=== PATIENT | male | born 1955 | race Caucasian/White ===

== ENCOUNTER → 2020-06-21 | Outpatient (CLI) | payer MEDICARE ==
--- NOTE | 2020-06-22 09:51 | ECHOF ---
Referral Reason:R00.1 Bradycardia MEASUREMENTS -------- HEIGHT: 180.3 cm WEIGHT: 84.4 kg BP: IVSd: 1.3 cm (0.6 - 1.1) LVIDd: 2.9 cm (3.9 - 5.3) LVPWd: 1.4 cm (0.6 - 1.1) IVSs: 1.8 cm LVIDs: 1.7 cm LVPWs: 2.0 cm LAESV Index (A-L): 25.31 ml/m Ao Diam: 3.5 cm (2.0 - 3.7) AV Cusp: 2.7 cm (1.5 - 2.6) LA Diam: 3.0 cm (2.7 - 3.8) MV EXCURSION: 16.659 mm (> 18.000) MV EF SLOPE: 106 mm/s (70 - 150) EPSS: 1.0 cm MV E Mendel: 0.80 m/s MV DecT: 250 ms MV A Mendel: 1.04 m/s MV E/A Ratio: 0.77 RAP: 5.00 mmHg RVSP: 25.48 mmHg FINDINGS -------- This was a technically good study. The left ventricular size is normal. There is mild concentric left ventricular hypertrophy. Overa ll left ventricular systolic function is normal with, an EF between 55 - 60 %. Normal LAP Grade 1 D iastolic Dysfunction. The right ventricle is normal in size. The left atrial size is normal. Normal LA size by volume 22+/-6 ml/m2. The right atrial size is normal. Interatrial and interventricular septum intact. Aortic valve is trileaflet and is mildly thickened. The mitral valve is normal. The mitral valve leaflets are mildly thickened. Mild mitral annular c alcification present. There is trace mitral regurgitation. The tricuspid valve appears structurally normal. Mild tricuspid regurgitation present. Right vent ricular systolic pressure is normal at < 35 mmHg. There is no pulmonic regurgitation present. The aortic root size is normal. Normal inferior vena cava with normal inspiratory collapse consistent with estimated right atrial pre ssure of 5 mmHg. There is no pericardial effusion. CONCLUSIONS -------- 1. The left ventricular size is normal. 2. There is mild concentric left ventricular hypertrophy. 3. Overall left ventricular systolic function is normal with, an EF between 55 - 60 %. 4. Normal LAP Grade 1 Diastolic Dysfunction. 5. Aortic valve is trileaflet and is mildly thickened. 6. The mitral valve leaflets are mildly thickened. 7. Mild mitral annular calcification present. 8. There is trace mitral regurgitation. 9. Mild tricuspid regurgitation present. 10. There is no pericardial effusion. UTILITY WORKER FORGE: Angelina Acosta RDCS
== END | disposition home or self-care (01) ==
LOC: RADECHMAIN 12:26
PROVIDERS: ATTEND Family Medicine
DX: R00.1 Bradycardia, unspecified (principal)
CPT/HCPCS: 93306

== ENCOUNTER 2020-11-14 23:47 | Inpatient (IN) | payer MEDICARE, OTHER ==
[2020-11-15] MEDS ORDERED: SODIUM CHLORIDE 0.9% 1,000 ML IV STA ×2 (00:10)
--- NOTE | 2020-11-15 00:12 | ED ---
Neuro HPI - General Chief Complaint: Neuro Symptoms/Deficit Stated Complaint: Right arm tingling, disoriented Time Seen by Provider: 11/14/20 23:57 Source: patient, family Mode of arrival: wheelchair Limitations: no limitations - Related Data Allergies/Adverse Reactions: Allergies Allergy/AdvReac Type Severity Reaction Status Date / Time No Known Allergies Allergy Verified 11/14/20 23:54 Review of Systems ROS Statement: Those systems with pertinent positive or pertinent negative responses have been documented in the HPI. ROS Other: All systems not noted in ROS Statement are negative. General Exam Limitations: no limitations Stroke MDM - Lab Data Result diagrams: 11/15/20 00:20 11/15/20 00:20 Lab Results 11/15/20 11/15/20 11/15/20 Range/Units 00:18 00:20 00:20 WBC 7.5 (3.8-10.6) k/uL RBC 5.12 (4.30-5.90) m/uL Hgb 16.1 (13.0-17.5) gm/dL Hct 47.7 (39.0-53.0) % MCV 93.0 (80.0-100.0) fL MCH 31.4 (25.0-35.0) pg MCHC 33.7 (31.0-37.0) g/dL RDW 13.0 (11.5-15.5) % Plt Count 189 (150-450) k/uL MPV 7.0 Neutrophils % 55 % Lymphocytes % 29 % Monocytes % 8 % Eosinophils % 6 % Basophils % 1 % Neutrophils # 4.2 (1.3-7.7) k/uL Lymphocytes # 2.2 (1.0-4.8) k/uL Monocytes # 0.6 (0-1.0) k/uL Eosinophils # 0.4 (0-0.7) k/uL Basophils # 0.1 (0-0.2) k/uL PT 10.5 (9.0-12.0) sec INR 1.0 (<1.2) APTT 22.7 (22.0-30.0) sec Sodium (137-145) mmol/L Potassium (3.5-5.1) mmol/L Chloride (98-107) mmol/L Carbon Dioxide (22-30) mmol/L Anion Gap mmol/L BUN (9-20) mg/dL Creatinine (0.66-1.25) mg/dL Est GFR (CKD-EPI)AfAm (>60 ml/min/1.73 sqM) Est GFR (CKD-EPI)NonAf (>60 ml/min/1.73 sqM) Glucose (74-99) mg/dL POC Glucose (mg/dL) 80 (75-99) mg/dL POC Glu Weight Caller ID Saul Paredes Calcium (8.4-10.2) mg/dL Total Bilirubin (0.2-1.3) mg/dL AST (17-59) U/L ALT (4-49) U/L Alkaline Phosphatase (38-126) U/L Creatine Kinase (55-170) U/L CK-MB (CK-2) (0.0-2.4) ng/mL Troponin I (0.000-0.034) ng/mL Total Protein (6.3-8.2) g/dL Albumin (3.5-5.0) g/dL 11/15/20 11/15/20 Range/Units 00:20 00:20 WBC (3.8-10.6) k/uL RBC (4.30-5.90) m/uL Hgb (13.0-17.5) gm/dL Hct (39.0-53.0) % MCV (80.0-100.0) fL MCH (25.0-35.0) pg MCHC (31.0-37.0) g/dL RDW (11.5-15.5) % Plt Count (150-450) k/uL MPV Neutrophils % % Lymphocytes % % Monocytes % % Eosinophils % % Basophils % % Neutrophils # (1.3-7.7) k/uL Lymphocytes # (1.0-4.8) k/uL Monocytes # (0-1.0) k/uL Eosinophils # (0-0.7) k/uL Basophils # (0-0.2) k/uL PT (9.0-12.0) sec INR (<1.2) APTT (22.0-30.0) sec Sodium 138 (137-145) mmol/L Potassium 4.0 (3.5-5.1) mmol/L Chloride 106 (98-107) mmol/L Carbon Dioxide 24 (22-30) mmol/L Anion Gap 8 mmol/L BUN 20 (9-20) mg/dL Creatinine 0.94 (0.66-1.25) mg/dL Est GFR (CKD-EPI)AfAm >90 (>60 ml/min/1.73 sqM) Est GFR (CKD-EPI)NonAf 85 (>60 ml/min/1.73 sqM) Glucose 82 (74-99) mg/dL POC Glucose (mg/dL) (75-99) mg/dL POC Glu Weight Caller ID Calcium 9.4 (8.4-10.2) mg/dL Total Bilirubin 0.5 (0.2-1.3) mg/dL AST 38 (17-59) U/L ALT 55 H (4-49) U/L Alkaline Phosphatase 100 (38-126) U/L Creatine Kinase 106 (55-170) U/L CK-MB (CK-2) 2.1 (0.0-2.4) ng/mL Troponin I <0.012 (0.000-0.034) ng/mL Total Protein 6.9 (6.3-8.2) g/dL Albumin 4.1 (3.5-5.0) g/dL - EKG Data -: EKG Interpreted by Me (EKG shows sinus Bradycardia rate of 53 OK 148 QRS 92 QTC 422) Past Medical History Past Medical History: No Reported History History of Any Multi-Drug Resistant Organisms: None Reported Past Surgical History: Appendectomy Past Psychological History: No Psychological Hx Reported Smoking Status: Never smoker Past Alcohol Use History: Occasional Past Drug Use History: None Reported Course Vital Signs 11/14/20 23:49 Temperature 98.1 F Pulse Rate 61 Respiratory 18 Rate Blood Pressure 195/101 O2 Sat by Pulse 99 Oximetry Disposition Clinical Impression: Cerebrovascular accident (CVA), Transient cerebral ischemia Disposition: ADMITTED IP TO THIS HOSP Condition: Fair Is patient prescribed a controlled substance at d/c from ED?: No Referrals: Prince Shea MD [Primary Care Provider] - 1-2 days
[2020-11-15 00:29] LABS: Basophils # (A) 0.1 k/uL (0-0.2); Basophils % (A) 1 %; Eosinophils # (A) 0.4 k/uL (0-0.7); Eosinophils % (A) 6 %; HCT 47.7 % (39.0-53.0); HGB 16.1 gm/dL (13.0-17.5); Lymphocytes # (A) 2.2 k/uL (1.0-4.8); Lymphocytes % (A) 29 %; MCH 31.4 pg (25.0-35.0); MCHC 33.7 g/dL (31.0-37.0); Monocytes # (A) 0.6 k/uL (0-1.0); Monocytes % (A) 8 %; Neutrophils # (A) 4.2 k/uL (1.3-7.7); Neutrophils % (A) 55 %; Platelet Count 189 k/uL (150-450); RBC 5.12 m/uL (4.30-5.90); WBC 7.5 k/uL (3.8-10.6)
[2020-11-15 00:31] LABS: Glucose,Whole Blood 80 mg/dL (75-99)
[2020-11-15 00:38] LABS: Partial Thromboplastin Time 22.7 sec (22.0-30.0); Prothrombin Time 10.5 sec (9.0-12.0)
[2020-11-15 00:43] LABS: ALT 55 U/L (4-49); AST 38 U/L (17-59); African American GFR (CKD) >90 (>60 ml/min/1.73 sqM); Albumin 4.1 g/dL (3.5-5.0); Alkaline Phosphatase 100 U/L (38-126); Anion Gap 8 mmol/L; Blood Urea Nitrogen 20 mg/dL (9-20); Calcium 9.4 mg/dL (8.4-10.2); Carbon Dioxide 24 mmol/L (22-30); Chloride 106 mmol/L (98-107); Creatine Kinase 106 U/L (55-170); Glucose 82 mg/dL (74-99); Non-African American GFR(CKD) 85 (>60 ml/min/1.73 sqM); Sodium 138 mmol/L (137-145); Total Bilirubin 0.5 mg/dL (0.2-1.3); Total Protein 6.9 g/dL (6.3-8.2)
[2020-11-15 00:55] LABS: Creatine Kinase MB 2.1 ng/mL (0.0-2.4); Troponin I <0.012 ng/mL (0.000-0.034)
--- NOTE | 2020-11-15 01:16 | CT ---
EXAMINATION TYPE: CT brain wo con for TPA DATE OF EXAM: 11/15/2020 COMPARISON: None HISTORY: R/O Stroke, Rt sided numbness CT DLP: 1060 mGycm Automated exposure control for dose reduction was used. Images obtained of the brain without contrast. Ventricles and sulci appear within normal limits. There is 1 cm area of white matter hypodensity in t he lateral anterior aspect left internal capsule.. The calvarium is intact. Skull base is intact. The re is no evidence of intracranial hemorrhage. IMPRESSION: Lacunar infarct anterior left internal capsule appears old. No acute intracranial abnormality.
--- NOTE | 2020-11-15 01:37 | CT ---
EXAMINATION TYPE: CT angio head neck DATE OF EXAM: 11/15/2020 COMPARISON: None HISTORY: R/O Stroke, Rt sided numbness CT DLP: 588.5 mGycm Automated exposure control for dose reduction was used. CONTRAST: Performed with IV Contrast, patient injected with 65 mL of Isovue 370. Images were obtained from the aortic arch to the vertex of the brain with IV contrast. There are 3-D post processed images. There is normal branching pattern of the great vessels on the aortic arch. There is bilateral arteria l flow in the subclavian arteries. There is arterial flow in both vertebral arteries. There is arterial flow in the common internal and external carotid arteries bilaterally. There is wide patency of the carotid artery bifurcations. Ther e is no evidence of carotid or vertebral artery aneurysm or dissection. There is arterial flow in the anterior middle and posterior cerebral arteries. There is arterial flow in the vertebrobasilar artery system. There is normal contrast opacification of the venous sinuses. There is no mass effect. There is no sign of intracranial aneurysm or neovascularity. There is no amaris dence of hemodynamic stenosis. The right anterior cerebral artery appears to fill entirely through th e anterior communicating artery. IMPRESSION: Negative CT angiogram of the neck. Negative CT angiogram of the brain.
[2020-11-15] MEDS ORDERED: ASPIRIN 325 MG TAB PO STA (01:50)
[2020-11-15] MEDS: SODIUM CHLORIDE 0.9% 1,000 ML IV SCH (02:05)
[2020-11-15] MEDS: CLOPIDOGREL 75 MG TAB PO SCH (09:09)
--- NOTE | 2020-11-15 10:32 | ECHOF ---
Referral Reason:Thrombus MEASUREMENTS -------- HEIGHT: 182.9 cm WEIGHT: 91.2 kg BP: 175/87 RVIDd: 2.6 cm (< 3.3) IVSd: 1.2 cm (0.6 - 1.1) LVIDd: 3.9 cm (3.9 - 5.3) LVPWd: 1.1 cm (0.6 - 1.1) IVSs: 1.5 cm LVIDs: 2.9 cm LVPWs: 1.4 cm LAESV Index (A-L): 18.86 ml/m Ao Diam: 3.6 cm (2.0 - 3.7) AV Cusp: 1.7 cm (1.5 - 2.6) MV EXCURSION: 15.618 mm (> 18.000) MV EF SLOPE: 93 mm/s (70 - 150) EPSS: 0.9 cm MV E Mendel: 0.56 m/s MV DecT: 303 ms MV A Mendel: 0.94 m/s MV E/A Ratio: 0.60 RAP: 5.00 mmHg RVSP: 23.73 mmHg FINDINGS -------- Sinus rhythm. This was a technically good study. The left ventricular size is normal. There is borderline concentric left ventricular hypertrophy. Overall left ventricular systolic function is normal with, an EF between 55 - 60 %. The right ventricle is normal in size. Normal LA size by volume 22+/-6 ml/m2. The right atrial size is normal. There is mild aortic valve sclerosis. There is no evidence of aortic regurgitation. Mild mitral annular calcification present. Mild mitral regurgitation is present. Mild tricuspid regurgitation present. There is no evidence of pulmonary hypertension. Trace/mild (physiologic) pulmonic regurgitation. The aortic root size is normal. Echo free space represents a pericardial fat pad. CONCLUSIONS -------- 1. The left ventricular size is normal. 2. There is borderline concentric left ventricular hypertrophy. 3. Overall left ventricular systolic function is normal with, an EF between 55 - 60 %. 4. The right ventricle is normal in size. 5. Normal LA size by volume 22+/-6 ml/m2. 6. The right atrial size is normal. 7. There is mild aortic valve sclerosis. 8. Mild mitral annular calcification present. 9. Mild mitral regurgitation is present. 10. Mild tricuspid regurgitation present. 11. Trace/mild (physiologic) pulmonic regurgitation. 12. The aortic root size is normal. 13. Echo free space represents a pericardial fat pad. FOUNDRY EQUIPMENT MECHANIC: Radha Wright RDCS
--- NOTE | 2020-11-15 13:07 | P.CNNES ---
History of Present Illness Consult date: 11/15/20 Requesting physician: Iraj Pace Reason for Consult: right sided numbness History of Present Illness: This is a 65-year-old gentleman with recent diagnosis of HTN (controlled with diet) and hypercholestremia that presented to the emergency department on 11/15/2020 for right-sided numbness. He stated that his numbness started around 2:00 to 2:30 on the 11/13/2020 and that was on the entire right upper extremity as well as the side of the V1 and V2 V3 distribution. He feels like the numbness has been improving but has not resolved. He also felt like he is having right-sided weakness and had difficulty walking yesterday but improved today. Patient denies off any neck pain or any current headaches. He denies of any history of stroke or TIAs in the past that. He stated that he is on aspirin 81 mg daily. In the past he stood be on the Lipitor 10 mg per was having joint pain so he stopped. He is not on any the cholesterol medication and because of the side effects. Regarding his hypertonicity was recently diagnosed with hypertension by his primary care and he said that that that was being monitored but was not on any medication. He said that he drinks about 9-10 and severe off 12 ounces once a week and he's been doing it for years. Workup in the hospital consisted of: CT of the head is reported as lacunar infarct in the anterior left internal capsule appears old. No acute intracranial abnormality. Personally reviewed the CT of the head and I agree there is no intraparenchymal hemorrhage acute or subacute ischemia. I felt there is lacunar infarct on bilateral internal capsule and at the borders of the thalamus bilaterally. CT angiography of the head and neck was reported as negative for the brain as well as the neck. 2-D echo was reported as borderline concentric left ventricular hypertrophy. Ejection fraction between 55 and 60%. Normal left atrial size. EKG is reported as sinus bradycardia. Otherwise normal EKG. Initial POC glucose is 80. Review of Systems Review of system: The 12 point system was reviewed and apparent positive and negative per HPI. Past Medical History Past Medical History: No Reported History History of Any Multi-Drug Resistant Organisms: None Reported Past Surgical History: Appendectomy Past Anesthesia/Blood Transfusion Reactions: No Reported Reaction Past Psychological History: No Psychological Hx Reported Smoking Status: Never smoker Past Alcohol Use History: Occasional Past Drug Use History: None Reported - Past Family History Father Family Medical History: CVA/TIA Additional Family Medical History / Comment(s): Pt states of stroke Mother Family Medical History: CVA/TIA Additional Family Medical History / Comment(s): Pt states of stroke Sister(s) Family Medical History: CVA/TIA Additional Family Medical History / Comment(s): Pt states of stroke Medications and Allergies Home Medications Medication Instructions Recorded Confirmed Type Aspirin EC [Ecotrin Low Dose] 81 mg PO DAILY 11/15/20 11/15/20 History Cholecalciferol [Vitamin D3 (25 25 mcg PO DAILY 11/15/20 11/15/20 History Mcg = 1000 Iu)] Allergies Allergy/AdvReac Type Severity Reaction Status Date / Time No Known Allergies Allergy Verified 11/15/20 07:03 Physical Examination - Vital Signs Vital Signs: Vital Signs Temp Pulse Pulse Resp BP BP Pulse Ox 11/15/20 12:10 98.2 F 59 L 18 160/92 97 11/15/20 09:05 98.1 F 58 L 16 149/80 96 11/15/20 04:00 97.9 F 50 L 18 175/87 98 11/15/20 02:45 50 L 18 153/88 97 11/15/20 02:00 98.3 F 50 L 18 152/87 11/15/20 01:30 54 L 18 158/89 11/15/20 01:00 98.2 F 50 L 18 162/92 11/15/20 00:45 56 L 18 147/89 11/15/20 00:30 55 L 18 151/87 11/15/20 00:15 55 L 18 166/88 11/15/20 00:01 98.1 F 62 18 167/101 98 11/14/20 23:49 98.1 F 61 18 195/101 99 Intake and Output 11/14/20 11/15/20 11/15/20 22:59 06:59 14:59 Intake Total 240 Balance 240 Intake: Oral 240 Other: # Voids 0 Weight 91.3 kg GENERAL: The patient is lying in bed and is not in acute distress. CHEST: The heart rate is regular rate rhythm. No murmurs to auscultation. No carotid bruit bilaterally----. LUNG: Clear to auscultation bilaterally no wheezing noted throughout. Not labored breathing. ABDOMEN/GI: Bowel sounds present in all 4 quadrants. No tenderness to palpation throughout. NEUROLOGICAL: Higher mental function: The patient is awake, alert, oriented to self, place and time. Patient is following commands. No aphasia and no neglect. Cranial nerves: The pupils are round, equal and reactive to light and ac commodation. Visual krishna are full to confrontation throughout. Extraocular movement is intact no nystagmus is noted. Facial sensation is normal to touch throughout. The facial strength is normal throughout. Hearing is mildly to moderate decreased to hand rubs. Tongue is midline and moved [id number] without any difficulty. No dysarthria is noted. Shoulder shrug is normal bilaterally. Motor: Gait is normal. The strength is 5 over 5 throughout. Normal tone and bulk. Cerebellum: Normal finger to nose bilaterally. Sensation: Sensation is normal to touch throughout. Reflexes (right/left): 2+ Plantars are downgoing bilaterally. NIH Stroke Scale Score: Level of consciousness 0 LOC questions 0 LOC commands 0 Best gaze 0 Visual krishna 0 Facial palsy 0 Left motor arm 0 Right motor arm 0 Left motor leg 0 Right motor leg 0 Limb ataxia 0 Sensory 0 Best language 0 Dysarthria 0 Extinction and inattention Total NIHSS score: 0 Results [place] virus PCR was not detected - Laboratory Findings CBC and BMP: 11/15/20 00:20 11/15/20 00:20 Abnormal Lab Findings: Abnormal Labs 11/15/20 00:20 ALT 55 H Assessment and Plan Assessment: This is a 55-year-old gentleman that came to the emergency department on 11/14/2020 for right-sided numbness and weakness that started on 11/13/20. Subjective Right sided numbness (face and arm) with weakness (weakness resolved): Is likely due to transient ischemic attack versus acute ischemic stroke Lacunar stroke seems bilateral on CT head: Small vessel disease (due to risk factors:hypercholestremia and hypertension) Recent diagnosis of Hypertension History of hypercholesterolemia Alcohol use Plan: Currently the patient is on aspirin 325 and Plavix 75 mg daily. I decreased the aspirin to 81 mg a. The patient to continue dual antiplatelets for 21 days then stop aspirin and to continue indefinitely on Plavix 75 mg daily. Since the patient had side effects to Lipitor and it was a low dose Lipitor 10 mg I will not start the patient on statin. Consider simvastatin 10 mg daily as an outpatient since we don't have the medication. Carotid duplex is ordered by the primary team. I ordered MRI of the brain Lipid panel is pending PT, OT and ADVANCED PRACTICE NURSE PSYCHOTHERAPIST are consulted. Ordered every 4 hours neuro checks Placed the patient on continous cardiac monitoring I ordered vitamin B12, folate and vitamin B6 levels. I started the patient on thiamine 100 mg daily. The patient was counseled on alcohol cessation. Thank you for the consultation. Kemar Gutierrez M.D. Neuro-hospitalist Time with Patient: Greater than 30
--- NOTE | 2020-11-15 15:35 | US ---
EXAMINATION TYPE: US carotid duplex BILAT DATE OF EXAM: 11/15/2020 COMPARISON: NONE CLINICAL HISTORY: 65-year-old male TIA/CVA. Right sided weakness, no history of stroke. TECHNIQUE: Carotid duplex ultrasound examination. Indirect Doppler criteria was utilized. FINDINGS: EXAM MEASUREMENTS: RIGHT: Peak Systolic Velocity (PSV) cm/sec ----- Right CCA: 79.9 ----- Right ICA: 89.2 ----- Right ECA: 89.4 ICA/CCA ratio: 1.1 RIGHT: End Diastole cm/sec ----- Right CCA: 12.7 ----- Right ICA: 11.6 ----- Right ECA: 12.4 LEFT: Peak Systolic Velocity (PSV) cm/sec ----- Left CCA: 73.5 ----- Left ICA: 108.0 ----- Left ECA: 142.6 ICA/CCA ratio: 1.5 LEFT: End Diastole cm/sec ----- Left CCA: 16.0 ----- Left ICA: 28.9 ----- Left ECA: 13.4 VERTEBRALS (direction of flow): Right Vertebral: Antegrade Left Vertebral: Antegrade Rhythm: Normal Bulb Weeder notes: Heterogeneous plaque left bulb/ICA with no significant stenosis seen. IMPRESSION: No hemodynamically significant internal carotid artery stenosis on either side. Criteria for Assigning % of Stenosis / Diameter reduction (Estimation based on the indirect measurements of the internal carotid artery velocities (ICA PSV). 1. Normal (no stenosis)=ICA PSV < 125 cm/s: ratio < 2.0: ICA EDV<40 cm/s. 2. Less than 50% stenosis=ICA PSV < 125 cm/s: ratio < 2.0: ICA EDV<40 cm/s. 3. 50 to 69% stenosis=ICA PSV of 125 to 230 cm/s: ration 2.0 ? 4.0: ICA EDV 40-100 cm/s. 4. Greater than 70% stenosis to near occlusion= ICA PSV > 230 cm/s: ratio > 4.0: ICA EDV > 100 cm/s. 5. Near occlusion= ICA PSV velocities may be low or undetectable: variable ratio and ICA EDV. 6. Total occlusion=unable to detect flow.
[2020-11-15] MEDS: THIAMINE 100 MG TAB PO SCH (17:40)
[2020-11-15] MEDS ORDERED: ATORVASTATIN 40 MG TAB PO SCH (21:00)
--- NOTE | 2020-11-16 00:37 | HP ---
HISTORY AND PHYSICAL A 65-year-old white male with right arm tingling, right facial tingling, disorientation starting 24 hours after drinking 9-10 beers. He has never had this before. He does drink binge drink 7-10 beers at any different time like 1 day a week for many years. He has never had a stroke. Borderline hypertension as an outpatient. No medicines. Allergies are negative. His right arm numbness is resolved. He has been given Plavix and aspirin. His right facial numbness is still there. Labs reviewed. MRI and MRA were reviewed. Neurology consult reviewed. Cardiovascular S1, S2. Lungs clear. GI soft. Musculoskeletal strength 5/5 for extremities. Cranial nerves are intact on the facial. There is no facial asymmetry. ASSESSMENT: Transient ischemic attack versus cerebrovascular accident, suspected transient ischemic attack. We are going to do an MRI. CTAs are normal. We will get cardiology to rule out doing a TAMMIE for patent foraminal ovale. Make sure there is none of those. Continue with Plavix and aspirin and maybe blood pressure control on the patient. Alcohol counseling for binge drinking is informed over 1-2 drinks a day. Over that, he will have higher blood pressure and he is going to have withdrawal from all of this for future alcohol drinking. Please see further orders. MMODL / IJN: [id number] /
[2020-11-16] MEDS ORDERED: ASPIRIN 325 MG TAB PO SCH (01:51)
[2020-11-16 08:08] LABS: Cholesterol 255 mg/dL (<200); HDL Cholesterol 70 mg/dL (40-60); LDL Cholesterol,Calculated 153 mg/dL (0-99); Triglycerides 162 mg/dL (<150)
[2020-11-16] MEDS: CLOPIDOGREL 75 MG TAB PO SCH (09:05)
[2020-11-16] MEDS: THIAMINE 100 MG TAB PO SCH (09:05)
[2020-11-16] MEDS: ASPIRIN 81 MG PO SCH (09:05)
--- NOTE | 2020-11-16 09:51 | P.CRDCN ---
History of Present Illness History of present illness: HISTORY OF PRESENTING ILLNESS This is a pleasant 65-year-old male with no significant past medical history. 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 We have been asked to see in consultation for embolic CVA. He has been diagnosed with a TIA versus a stroke per neurology. MRI is currently pending. Echocardiogram obtained reveals preserved LV systolic function with ejection fraction 55-60%. He initially presented to the hospital with numbness to the right side of his face that lasted for approximately 30 minutes. The numbness is currently resolved. He denies symptoms of chest pain, shortness of breath, dizziness or palpitations. DIAGNOSTICS EKG reveals sinus bradycardia heart rate of [address] or T wave abnormalities noted. Telemetry tracings indicate persistent sinus mechanism with no acute arrhythmias noted. Bilateral carotid Doppler reveals no hemodynamically significant stenosis bilaterally. Laboratory reviewed, CBC unremarkable, sodium 138, potassium 4.0, creatinine 0.94, troponin negative 1, TSH 3.37, LDL 151 and HDL 72. Current cardiac medications include aspirin 81 mg daily. REVIEW OF SYSTEMS At the time of my exam: CONSTITUTIONAL: Denies fever or chills. CARDIOVASCULAR: Denies chest pain, shortness of breath, orthopnea, PND or pa lpitations. RESPIRATORY: Denies cough. GASTROINTESTINAL: Denies abdominal pain, diarrhea, constipation, nausea or vomiting. MUSCULOSKELETAL: Denies myalgias. NEUROLOGIC: Denies numbness, tingling, headacbe or weakness. ENDOCRINE: Denies fatigue, weight change, polydipsia or polyurina. GENITOURINARY: Denies burning, hematuria or urgency with micturation. HEMATOLOGIC: Denies history of anemia or bleeding. PHYSICAL EXAMINATION Blood pressure 122/69 heart rate 61 afebrile and maintaining oxygen saturation on room air. CONSTITUTIONAL: No apparent distress. HEENT: Head is normocephalic. Pupils are equal, round. Sclerae anicteric. Mucous membranes of the mouth are moist. No JVD. No carotid bruit. CHEST EXAMINATION: Lungs are clear to auscultation. No chest wall tenderness is noted on palpation or with deep breathing. HEART EXAMINATION: Regular rate and rhythm. S1, S2 heard. No murmurs, gallops or rub. ABDOMEN: Soft, nontender. Positive bowel sounds. EXTREMITIES: 2+ peripheral pulses, no lower extremity edema and no calf tenderness. NEUROLOGIC EXAMINATION: Patient is awake, alert and oriented x3. ASSESSMENT TIA vs CVA Dyslipidemia Hypertension Daily alcohol intake PLAN He has eaten this morning, so we will plan for TAMMIE tomorrow morning with Dr. Camp. NPO after midnight tonight. Thank you kindly for this consultation. Nurse Practitioner note has been reviewed, I agree with a documented findings and plan of care. Patient was seen and examined. Past Medical History Past Medical History: No Reported History History of Any Multi-Drug Resistant Organisms: None Reported Past Surgical History: Appendectomy Past Anesthesia/Blood Transfusion Reactions: No Reported Reaction Past Psychological History: No Psychological Hx Reported Smoking Status: Never smoker Past Alcohol Use History: Occasional Past Drug Use History: None Reported - Past Family History Father Family Medical History: CVA/TIA Additional Family Medical History / Comment(s): Pt states of stroke Mother Family Medical History: CVA/TIA Additional Family Medical History / Comment(s): Pt states of stroke Sister(s) Family Medical History: CVA/TIA Additional Family Medical History / Comment(s): Pt states of stroke Medications and Allergies Home Medications Medication Instructions Recorded Confirmed Type Aspirin EC [Ecotrin Low Dose] 81 mg PO DAILY 11/15/20 11/15/20 History Cholecalciferol [Vitamin D3 (25 25 mcg PO DAILY 11/15/20 11/15/20 History Mcg = 1000 Iu)] Allergies Allergy/AdvReac Type Severity Reaction Status Date / Time No Known Allergies Allergy Verified 11/15/20 07:03 Physical Exam Vitals: Vital Signs Temp Pulse Resp BP Pulse Ox 11/16/20 09:00 98.2 F 61 16 122/69 98 11/16/20 04:00 58 L 18 144/77 97 11/16/20 02:00 55 L 18 11/15/20 23:51 55 L 18 142/81 97 11/15/20 20:00 63 18 11/15/20 19:52 97.8 F 63 18 150/79 11/15/20 14:00 18 11/15/20 12:10 98.2 F 59 L 18 160/92 97 Intake and Output 11/15/20 11/16/20 11/16/20 22:59 06:59 14:59 Intake Total 118 Balance 118 Intake: Oral 118 Other: # Voids 1 1 Weight 89.9 kg Results 11/15/20 00:20 11/15/20 00:20 Lipids 11/16/20 11/16/20 Range/Units 07:37 07:37 Triglycerides 162 H 164 H (<150) mg/dL Cholesterol 255 H 256 H (<200) mg/dL HDL Cholesterol 70 H 72 H (40-60) mg/dL Current Medications Generic Name Dose Route Start Last Admin Trade Name Ryanq PRN Reason Stop Dose Admin Aspirin 81 mg 11/16/20 09:00 11/16/20 09:05 Aspirin 81 Mg PO 81 mg DAILY PARRISH Administration Clopidogrel Bisulfate 75 mg 11/15/20 09:00 11/16/20 09:05 Clopidogrel 75 Mg Tab PO 75 mg DAILY PARRISH Administration Sodium Chloride 1,000 mls @ 100 mls/hr 11/15/20 02:00 11/15/20 02:05 Saline 0.9% IV 100 mls/hr .Q10H PARRISH Administration Thiamine HCl 100 mg 11/15/20 13:15 11/16/20 09:05 Thiamine 100 Mg Tab PO 100 mg DAILY PARRISH Administration Intake and Output 11/15/20 11/16/20 11/16/20 22:59 06:59 14:59 Intake Total 118 Balance 118 Intake: Oral 118 Other: # Voids 1 1 Weight 89.9 kg 11/15/20 00:20 11/15/20 00:20
--- NOTE | 2020-11-16 11:26 | MR ---
"EXAMINATION TYPE: MR brain wo con DATE OF EXAM: 11/16/2020 COMPARISON: CT brain 11/15/2020 HISTORY: Right sided weakness CONTRAST: Performed utilizing 0 mL intravenous Gadavist gadolinium contrast. TECHNIQUE: Multiplanar, multiecho imaging on a 3.0 Jasmin magnet is performed through the brain. Stud y is performed within 24 hours of arrival to the hospital. The craniovertebral junction is normal. The pituitary is normal. Diffusion-weighted imaging is performed. There is hyperintensity within the posterior left basal rebecca glion extending to the periventricular occipital horn region compatible with an acute lacunar infarct . An old lacunar infarct is in the anterior left basal ganglion adjacent to the anterior horn left late ral ventricle. There is some scattered periventricular and subcortical and deep white matter hyperint ensities on T2 and inversion recovery weighted sequences which are nonspecific and can be related to microvascular ischemic change. Largest of these left farrell radiata measuring 0.7 cm. Ventricles and sulci are appropriate for the patient age. IMPRESSIONS: 1. Acute left posterior basal ganglion lacunar infarct. 2. Periventricular and deep white matter changes likely chronic microvascular ischemic change. A [place] level critical message alert has been initiated for Prince Shea MD via the [employer] 36 0 | Critical Results System on 11/16/2020 11:22 AM. This message alert has been sent to Prince Shea MD via the preferences provided by the clinician for the receipt of Radiology Critical Findings. Mt ssage ID [id number]."
[2020-11-16 12:33] LABS: Hemoglobin A1C 5.3 % (4.0-6.0)
--- NOTE | 2020-11-16 13:09 | P.PN ---
Subjective Progress Note Date: 11/16/20 Patient was seen today at bedside and he stated that the he feels neurologically the same and denies any new weakness, numbness, visual disturbance. He continues to have some numbness over the right side but feels it is improving. MRI the brain was done today and it's reported as acute left posterior basal ganglia lacunar infarct. Periventricular and deep white matter changes likely chronic microvascular ischemic changes. Objective - Vital Signs Vital signs: Vital Signs Temp 98.3 F 11/16/20 11:41 Pulse 56 L 11/16/20 11:41 Resp 16 11/16/20 11:41 BP 152/83 11/16/20 11:41 Pulse Ox 98 11/16/20 11:41 Intake & Output 11/15/20 11/16/20 11/16/20 18:59 06:59 18:59 Intake Total 460 118 236 Balance 460 118 236 Weight 89.9 kg Intake: Oral 460 118 236 Other: # Voids 2 1 - Exam GENERAL: The patient is lying in bed and is not in acute distress. NEUROLOGICAL: Higher mental function: The patient is awake, alert, oriented to self, place and time. Patient is following commands. No aphasia and no neglect. Cranial nerves: The pupils are round, equal and reactive to light and accommodation. Visual krishna are full to confrontation throughout. Extraocular movement is intact no nystagmus is noted. Facial sensation is normal to touch throughout. The facial strength is normal throughout. Hearing is mildly to moderate decreased to hand rubs. Tongue is midline and moved [id number] without any difficulty. No dysarthria is noted. Shoulder shrug is normal bilaterally. Motor: Gait is normal. The strength is 5 over 5 throughout. Normal tone and bulk. Cerebellum: Normal finger to nose bilaterally. Sensation: Sensation is normal to touch throughout. Reflexes (right/left): 2+ Plantars are downgoing bilaterally. - Labs CBC & Chem 7: 11/15/20 00:20 11/15/20 00:20 Labs: Abnormal Lab Results - Last 24 Hours (Table) 11/16/20 11/16/20 Range/Units 07:37 07:37 Triglycerides 162 H 164 H (<150) mg/dL Cholesterol 255 H 256 H (<200) mg/dL LDL Cholesterol, Calc 153 H 151 H (0-99) mg/dL HDL Cholesterol 70 H 72 H (40-60) mg/dL Assessment and Plan Assessment: This is a 55-year-old gentleman that came to the emergency department on 11/14/2020 for right-sided numbness and weakness that started on 11/13/20. Acute ischemic stroke with acute left posterior basal ganglia lacunar infarct. (Subjective Right sided numbness (face and arm) with weakness (weakness resolved): Seems small vessel disease from risk factor (HTN, hypercholestremia) Lacunar stroke seems bilateral on CT head: Small vessel disease (due to risk factors:hypercholestremia and hypertension) Vitamin B12: 257 which is low normal (possibly from alcohol use) Recent diagnosis of Hypertension History of hypercholesterolemia Alcohol use Plan: Continue dual antiplatelets (ASA 81mg and Plavix 75mg daily) for 21 days then stop aspirin and to continue indefinitely on Plavix 75 mg daily. Since the patient had side effects to Lipitor and it was a low dose Lipitor 10 mg I will not start the patient on statin. Consider simvastatin 10 mg daily as an outpatient since we don't have the medication. Carotid duplex: Was reported as no hemodynamically significant internal carotid artery stenosis on either side. MRI the brain was done today and it's reported as acute left posterior basal ganglia lacunar infarct. Periventricular and deep white matter changes likely chronic microvascular ischemic changes. 2-D echo was reported as overall left ventricular systolic function is normal with ejection fraction of 55-60%. Normal left atrial size by volume. Primary team consulted cardiology for a TAMMIE and seems that the patient is being planned to get a TAMMIE tomorrow morning. Lipid panel: Triglyceride is 162, cholesterol 255, LDLs 153 and the HDL is 70. The LDL goal and the stroke is less than 70. PT, OT and SECURITY COMPLIANCE ENGINEER are consulted. On 4 hours neuro checks On continous cardiac monitoring Vitamin B12: 257 which is low normal. Therefore I will give the patient vitamin B12 IM 1000 g once today then I'll start the patient on the vitamin B12 at thousand micrograms daily by mouth. RBC folate: 555 (normal). Vitamin B6 level: pending. Hemoglobin A1c is 5.3 which is normal. Continue on thiamine 100 mg daily. The patient was counseled on alcohol cessation. If the TAMMIE is normal then no further work-up is needed from a neurological standpoint. The patient needs to follow-up with a neurologist as an outpatient within 1-2 weeks. Will conintue to follow. Kemar Gutierrez M.D. Neuro-hospitalist Time with Patient: Less than 30
--- NOTE | 2020-11-16 13:45 | PN ---
PROGRESS NOTE A 65-year-old white male who had a stroke, left basal ganglia posteriorly, started on Plavix and aspirin. He is going to have a ATMMIE tomorrow to rule out PFO as cause of stroke. If that is negative, we will send home with physical therapy. His right arm numbness greatly improved. CARDIOVASCULAR: S1, S2. LUNGS: Clear. GI: Soft. HEMATOLOGY: Negative Homans. ASSESSMENT: 1. Alcohol daily intake. 2. Hypertension acceleration most likely the cause of his cerebrovascular accident of the basal ganglia on the left. Neurologic symptoms are resolved. After TAMMIE, we will discharge him home when cleared after TAMMIE. MMODL / IJN: [id number] /
[2020-11-16] MEDS ORDERED: CYANOCOBALAMIN 1,000 MCG/ML 1 ML VIAL IM ONE (14:00)
[2020-11-17] MEDS: BENZOCAINE SPRAY 1 CAN MUCOUS MEM ONE ×3 (08:46→08:59)
[2020-11-17] MEDS ORDERED: fentaNYL (PF) 50 MCG/ML 2 ML AMP ONE (08:49)
[2020-11-17] MEDS ORDERED: SODIUM CHLORIDE 0.9% 500 ML 500 ML IV ONE (08:50)
[2020-11-17] MEDS ORDERED: MIDAZOLAM 2 MG/2 ML VIAL IVP ONE ×2 (08:56→08:59)
[2020-11-17] MEDS ORDERED: fentaNYL (PF) 50 MCG/ML 2 ML AMP IVP ONE (08:56)
[2020-11-17] MEDS ORDERED: CYANOCOBALAMIN 500 MCG TAB PO SCH (09:00)
--- NOTE | 2020-11-17 10:29 | ECHOT ---
TRANSESOPHAGEAL ECHOCARDIOGRAM INDICATIONS: Cerebrovascular accident, rule out cardiac source of thromboembolic phenomenon. PROCEDURE NOTE: After obtaining informed consent, transesophageal echocardiogram is performed in left lateral position using an Omniplane probe. Local and IV sedation were obtained using 3 mg of Versed and 50 mcg of fentanyl. The patient tolerated the procedure well without any obvious immediate complications. Patient received moderate conscious sedation. Total sedation time was 8 minutes. FINDINGS: 1. There is no intracardiac thrombus within the left atrial appendage, left atrium, right atrium, right ventricle or left ventricle. 2. Left ventricle has normal size and systolic function. 3. Left atrium, right atrium, right ventricle are within normal limits. 4. Mitral valve is anatomically normal. There is mild central mitral regurgitation noted. 5. Aortic valve is free of stenosis, regurgitation. 6. Tricuspid valve shows mild tricuspid regurgitation. 7. Interatrial Septum: There is no evidence of [id number] shunt by color-flow Doppler or [id number] shunt by agitated saline contrast study. 8. Aorta shows mild atherosclerotic changes. CONCLUSION: No intracardiac thrombus. No shunting across the interatrial septum. Left ventricular function is normal. MMODL / IJN: [id number] /
[2020-11-17] MEDS: CLOPIDOGREL 75 MG TAB PO SCH (10:46)
[2020-11-17] MEDS: THIAMINE 100 MG TAB PO SCH (10:46)
[2020-11-17] MEDS: ASPIRIN 81 MG PO SCH (10:46)
[2020-11-17 12:02] VITALS: BP 157/90; PULSE 57; RESP 16; TEMP 97.8
[2020-11-17] MEDS: SODIUM CHLORIDE 0.9% 1,000 ML IV SCH (12:11)
--- NOTE | 2020-11-17 12:21 | P.PN ---
Subjective Progress Note Date: 11/17/20 She was seen at bedside and he said that he's doing much better today compared to his initial presentation. He stated that he is almost back to baseline he has some right ear otherwise he denies of any other neurological deficits or complaints. The patient had transesophageal echocardiogram today and is reported as no intracardiac thrombus. No shunting across that temperature atrial septum. Left ventricular function is normal. Objective - Vital Signs Vital signs: Vital Signs Temp 97.8 F 11/17/20 12:01 Pulse 57 L 11/17/20 12:01 Resp 16 11/17/20 12:01 BP 157/90 11/17/20 12:01 Pulse Ox 99 11/17/20 12:01 Intake & Output 11/16/20 11/17/20 11/17/20 18:59 06:59 18:59 Intake Total 956 240 250 Output Total 200 Balance 956 40 250 Weight 90 kg Intake: IV 250 Oral 956 240 Output: Urine 200 Other: # Voids 2 - Exam GENERAL: The patient is lying in bed and is not in acute distress. NEUROLOGICAL: Higher mental function: The patient is awake, alert, oriented to self, place and time. Patient is following commands. No aphasia and no neglect. Cranial nerves: The pupils are round, equal and reactive to light and acc ommodation. Visual krishna are full to confrontation throughout. Extraocular movement is intact no nystagmus is noted. Facial sensation is normal to touch throughout. The facial strength is normal throughout. Hearing is mildly to moderate decreased to hand rubs. Tongue is midline and moved [id number] without any difficulty. No dysarthria is noted. Shoulder shrug is normal bilaterally. Motor: Gait is normal. The strength is 5 over 5 throughout. Normal tone and bulk. Cerebellum: Normal finger to nose bilaterally. Sensation: Sensation is normal to touch throughout. Reflexes (right/left): 2+ Plantars are downgoing bilaterally. - Labs CBC & Chem 7: 11/15/20 00:20 11/15/20 00:20 Assessment and Plan Assessment: This is a 55-year-old gentleman that came to the emergency department on 11/14/2020 for right-sided numbness and weakness that started on 11/13/20. Acute ischemic stroke with acute left posterior basal ganglia lacunar infarct. (Subjective Right sided numbness (face and arm) with weakness (weakness resolved): Seems small vessel disease from risk factor (HTN, hypercholestremia) Lacunar stroke seems bilateral on CT head: Small vessel disease (due to risk factors:hypercholestremia and hypertension) Vitamin B12: 257 which is low normal (possibly from alcohol use) Recent diagnosis of Hypertension History of hypercholesterolemia Alcohol use Plan: Continue dual antiplatelets (ASA 81mg and Plavix 75mg daily) for 21 days then stop aspirin and to continue indefinitely on Plavix 75 mg daily. Since the patient had side effects to Lipitor and it was a low dose Lipitor 10 mg I will not start the patient on statin. Consider simvastatin 10 mg daily as an outpatient since we don't have the medication. Carotid duplex: Was reported as no hemodynamically significant internal carotid artery stenosis on either side. MRI the brain was done today and it's reported as acute left posterior basal ganglia lacunar infarct. Periventricular and deep white matter changes likely chronic microvascular ischemic changes. 2-D echo was reported as overall left ventricular systolic function is normal with ejection fraction of 55-60%. Normal left atrial size by volume. The patient had transesophageal echocardiogram today and is reported as no intracardiac thrombus. No shunting across that temperature atrial septum. Left ventricular function is normal. Lipid panel: Triglyceride is 162, cholesterol 255, LDLs 153 and the HDL is 70. The LDL goal and the stroke is less than 70. PT, OT and METAL BUILDINGS ASSEMBLER are consulted. On 4 hours neuro checks On continous cardiac monitoring Vitamin B12: 257 which is low normal. Therefore I will give the patient vitamin B12 IM 1000 g once today then I'll start the patient on the vitamin B12 at thousand micrograms daily by mouth. RBC folate: 555 (normal). Vitamin B6 level: pending. Hemoglobin A1c is 5.3 which is normal. Continue on thiamine 100 mg daily. The patient was counseled on alcohol cessation. No further work-up is needed from a neurological standpoint. The patient needs to follow-up with a neurologist as an outpatient within 1-2 weeks. Kemar Gutierrez M.D. Neuro-hospitalist Time with Patient: Less than 30
--- NOTE | 2020-11-17 14:46 | CDI ---
Documentation Clarification Form Date: 11/17/2020 02:34:37 PM From: Sylvia Delarosa CCS, CCDS Admit Date: 11/15/2020 01:51:00 AM Patient Name: Mike Mayer Visit Number: [id number] Discharge Date: ATTENTION: The Clinical Documentation Specialists (CDI) and [facility] Coding Staff appreciate your assistance in clarifying documentation. Please respond to the clarification below the line at the bottom and electronically sign. The CDI & [facility] Coding staff will review the response and follow-up if needed. Please note: Queries are made part of the Legal Health Record. If you have any questions, please contact the author of this message via ITS. Dr. Kemar Gutierrez: Patient was admitted 11/15 with right arm tingling, right facial tingling and disorientation that started 24 hours after drinking 9-10 beers. On 11/16 the patient was diagnosed with an Acute Ischemic Stroke with Acute Left Posterior Basal Ganglia.Lacunar Infarct. History/Risk Factors per the 11/15 ED Note Past Medical History: Hypertension, Hypercholesterlolemia. Clinical Indicators: Presented to the ED on 11/15 with the above symptoms. Admitted with CVA vs TIA. 11/15 CT Brain: There is 1 cm area of white matter hypodensity in the lateral anterior aspect left internal capsule. The calvarium is intact. Skull base is intact. There is no evidence of intracranial hemorrhage. Lacunar infarct anterior left internal capsule appears old. No acute intracranial abnormality. 11/15 CT Head/Neck: negative. 11/15 US Carotids: No hemodynamically significant ICA stenosis. 11/16 CT Brain: Acute left posterior basal ganglion lacunar infarct. Periventricular and deep white matter changes likely chronic microvascular ischemic change. Treatment 11/15: IV fluid 1,000 mls @ 999 mls/hr q1H, IV fluid 1,000 mls @ 100 mls/hr q10H, po Aspirin, po Plavix, Vit B1, Neuro Assessments. In your professional opinion, can you please clarify the underlying cause, condition or process, if any, represented by these findings? [ ] Cerebral edema, etiology know, please specify: [ ] Cerebral edema, etiology unknown [ ] Unable to determine [ ] Other Condition, please specify: _Patient has acute ischemic stroke. It is small vessel disease from his risk factor of hypertension and hypercholestremia. Other regarding cerebral edema no. Otherwise unable to determine. (Last Revision: May 2017) MTDD
[2020-11-17] MEDS ORDERED: amLODIPine 5 MG TAB PO SCH (15:00)
--- NOTE | 2020-11-17 16:48 | DS ---
DISCHARGE SUMMARY A 65-year-old white male who is doing much better from his initial presentation. He had a basal ganglia stroke posteriorly. TAMMIE which showed no PFO, no shunting, so CVA is most likely due to hypertension acceleration. Temperature is 97.8, pulse 57, respiratory 16, blood pressure 157/90, O2 99. Cardiovascular S1, S2. Lungs clear. Extremities moves x4. Normal cranial nerves. Sensation normal. Reflexes normal. Strength is 5/5 x4 extremities. ASSESSMENT: 1. Lacunar stroke. 2. Basal ganglia stroke. 3. Hypertension. 4. Hypercholesterolemia. 5. Alcohol abuse. PLAN: Continue on aspirin and Plavix for 21 days then stop aspirin and continue with Plavix. They did not recommend a statin due to Lipitor myalgias in the past, except maybe try simvastatin 10 as a trial. Carotid and MRI of the brain as mentioned. Echo was normal. TAMMIE normal. Possibly PT OT will be needed. He will take vitamin B12 1000 mcg once a day and continue with thiamine 100 mg a day for alcohol withdrawal. Blood pressure medication low dose will be given. PROGNOSIS: Guarded. MMODL / IJN: [id number] /
[2020-11-17] MEDS ORDERED: ATORVASTATIN 20 MG TAB PO SCH (21:00)
== END 2020-11-17 16:45 | disposition home or self-care (01) | DRG 65 ==
LOC: EC 23:47 → 3SCARD 11-15 01:51
PROVIDERS: ADMIT Family Medicine; ATTEND Family Medicine
DX: I63.22 Cerebral infarction due to unspecified occlusion or stenosis of basilar artery (principal); F10.130 Alcohol abuse with withdrawal, uncomplicated; R20.0 Anesthesia of skin; E78.00 Pure hypercholesterolemia, unspecified; Z79.82 Long term (current) use of aspirin; Z82.3 Family history of stroke; I10 Essential (primary) hypertension; R00.1 Bradycardia, unspecified
CPT/HCPCS: 36415; 70450; 70496; 70498; 70551; 80053; 80061; 82550; 82553; 82607; 82747; 83036; 84207; 84443; 84484; 85025; 85610; 85730; 87635; 93005; 93306; 93312; 93320; 93325; 93880; 96360; 99285

== ENCOUNTER 2020-12-06 19:09 | Emergency (ER) | payer MEDICARE, OTHER ==
[2020-12-06 19:23] VITALS: RESP 18; TEMP 97.6
--- NOTE | 2020-12-06 19:59 | ED ---
General Adult HPI - General Chief complaint: Headache Stated complaint: Headache Time Seen by Provider: 12/06/20 19:30 Source: patient, RN notes reviewed Mode of arrival: wheelchair Limitations: no limitations - History of Present Illness Initial comments: Patient is a pleasant 65-year-old male presenting to the emergency Department with left-sided headache. Onset of symptoms was around 3 hours ago. Headache was in the left side behind the ear. Discomfort was moderate and lasted around an hour or so. Patient did have similar symptoms on the opposite side with recent stroke. Symptoms have now resolved. Patient denies any weakness or stroke symptoms at this time. No blurred vision. No speech problems or confusion. No weakness. No loss of sensation. Patient did talk to his doctor who recommended he have a computed tomography scan of the brain. - Related Data Home Medications Medication Instructions Recorded Confirmed Aspirin EC [Ecotrin Low Dose] 81 mg PO DAILY 11/15/20 11/15/20 Cholecalciferol [Vitamin D3 (25 25 mcg PO DAILY 11/15/20 11/15/20 Mcg = 1000 Iu)] Previous Rx's Medication Instructions Recorded Clopidogrel [Plavix] 75 mg PO DAILY 30 Days #30 tab 11/17/20 Cyanocobalamin [Vitamin B-12] 1,000 mcg PO DAILY 90 Days #90 tab 11/17/20 Thiamine [Vitamin B-1] 100 mg PO DAILY 90 Days #90 tab 11/17/20 amLODIPine [Norvasc] 5 mg PO DAILY 30 Days #30 tab 11/17/20 Allergies Allergy/AdvReac Type Severity Reaction Status Date / Time No Known Allergies Allergy Verified 12/06/20 19:23 Review of Systems ROS Statement: Those systems with pertinent positive or pertinent negative responses have been documented in the HPI. ROS Other: All systems not noted in ROS Statement are negative. Constitutional: Denies: fever Eyes: Denies: eye pain ENT: Denies: ear pain Respiratory: Denies: cough Cardiovascular: Denies: chest pain Endocrine: Denies: fatigue Gastrointestinal: Denies: abdominal pain Genitourinary: Denies: dysuria Musculoskeletal: Denies: back pain Skin: Denies: rash Neurological: Reports: headache. Denies: weakness, numbness, paresthesias, confusion, vertigo Past Medical History Past Medical History: CVA/TIA, Hypertension Additional Past Medical History / Comment(s): Recent cva 11/16/20 History of Any Multi-Drug Resistant Organisms: None Reported Past Surgical History: Appendectomy Past Anesthesia/Blood Transfusion Reactions: No Reported Reaction Past Psychological History: No Psychological Hx Reported Smoking Status: Never smoker Past Alcohol Use History: Occasional Past Drug Use History: None Reported - Past Family History Father Family Medical History: CVA/TIA Additional Family Medical History / Comment(s): Pt states of stroke Mother Family Medical History: CVA/TIA Additional Family Medical History / Comment(s): Pt states of stroke Sister(s) Family Medical History: CVA/TIA Additional Family Medical History / Comment(s): Pt states of stroke General Exam Limitations: no limitations General appearance: alert, in no apparent distress Head exam: Present: atraumatic, other (No tenderness over the temporal artery or area of complaint, left occipital) Eye exam: Present: normal appearance, PERRL, EOMI ENT exam: Present: normal oropharynx Neck exam: Present: normal inspection Respiratory exam: Present: normal lung sounds bilaterally Cardiovascular Exam: Present: regular rate, normal rhythm GI/Abdominal exam: Present: soft. Absent: tenderness Extremities exam: Present: normal inspection Neurological exam: Present: alert, oriented X3, CN II-XII intact. Absent: motor sensory deficit Expanded Neurological exam: Present: protecting the airway Patient oriented to: Present: person, place, time Speech: Present: fluid speech Cranial nerves: EOM's Intact: Normal, Facial Sensation: Normal Sensory exam: Upper Extremity Light Touch: Normal, Lower Extremity Light Touch: Normal Motor strength exam: RUE: 5, LUE: 5, RLE: 5, LLE: 5 Eye Response: (4) open spontaneously Motor Response: (6) obeys commands Verbal Response: (5) oriented Psychiatric exam: Present: normal affect, normal mood Skin exam: Present: normal color Course Vital Signs 12/06/20 12/06/20 19:19 21:23 Temperature 97.6 F Pulse Rate 63 57 L Respiratory 18 18 Rate Blood Pressure 145/77 119/78 O2 Sat by Pulse 99 95 Oximetry EKG Findings - EKG Comments: EKG Findings:: Normal sinus rhythm with rate of 61. WV 122. QRS 110. QT 442. QTC 444. Normal axis. Normal QRS. No acute ST change. Medical Decision Making - Medical Decision Making Patient reevaluated and remains symptom free. Dr. Shea was updated in agreement with discharge and follow-up. Patient updated. - Radiology Data Radiology results: report reviewed (Computed tomography scan of the brain shows encephalomalacia left frontal lacunar infarcts from previous MRI. No acute abnormality.) Disposition Clinical Impression: Cephalgia Disposition: HOME SELF-CARE Condition: Stable Instructions (If sedation given, give patient instructions): Acute Headache (ED) Additional Instructions: Please follow-up with your primary care physician, Dr. Shea in the next day or 2 for recheck. Return for weakness, confusion, speech problems, visual problems, loss of sensation, worsening symptoms or increased pain or any other concerns. Is patient prescribed a controlled substance at d/c from ED?: No Referrals: Prince Shea MD [Primary Care Provider] - 1-2 days Time of Disposition: 22:11
--- NOTE | 2020-12-06 21:52 | CT ---
EXAMINATION TYPE: CT brain wo con DATE OF EXAM: 12/06/2020 HISTORY: Left posterior headache. Recent TIA.. CT DLP: 1052.4 mGycm. Automated Exposure Control for Dose Reduction was Utilized. TECHNIQUE: CT scan of the head is performed without contrast. COMPARISON: CT brain 11/15/2020. MRI brain 11/16/2020 FINDINGS: There is no acute intracranial hemorrhage, midline shift, or mass effect identified. There is evolvin g encephalomalacia of the left frontal lacunar infarct as seen on 11/16/2020 MRI brain. There is also redemonstrated old lacunar infarct of the more inferior anterior left frontal lobe. Patchy white heath er hypodensities likely sequela of chronic microvascular ischemic change. The ventricles, sulci, and cisterns are normal in size and configuration. No abnormal extra-axial fluid collection. No depressed calvarial fracture. The globes are grossly sym metric. Mucosal retention cyst versus polyp of the right maxillary sinus. Mastoid air cells are clear . IMPRESSION: 1. Evolving encephalomalacia of the left frontal lacunar infarct seen on 11/16/2020 MRI comparison. 2. No new acute intracranial hemorrhage, midline shift, or mass effect.
[2020-12-06 22:07] VITALS: PULSE 57
[2020-12-06 22:20] VITALS: BP 132/74
== END 2020-12-06 22:28 | disposition home or self-care (01) ==
LOC: EC 19:09
DX: R51.9 Headache, unspecified (principal); I10 Essential (primary) hypertension; Z86.73 Personal history of transient ischemic attack (TIA), and cerebral infarction without residual deficits; Z79.82 Long term (current) use of aspirin
CPT/HCPCS: 70450; 93005; 99284

== ENCOUNTER → 2022-07-26 | Outpatient (CLI) | payer MEDICARE, OTHER | END | disposition home or self-care (01) | LOC: LABT 13:38 | PROVIDERS: ATTEND Internal Medicine Cardiovascular Disease | DX: E78.2 Mixed hyperlipidemia (principal) ==

== ENCOUNTER → 2022-07-31 | Outpatient (CLI) | payer MEDICARE, OTHER ==
[2022-07-31 10:51] LABS: ALT 41 U/L (10-49); AST 25 U/L (14-35); Chol/HDL Ratio 2.31 Ratio; LDL Cholesterol,Calculated 69.8 mg/dL (0.0-131.0); VLDL Calculation 18.16 mg/dL (5.00-40.00)
== END | disposition home or self-care (01) ==
LOC: LABWHC1 06:57
PROVIDERS: ATTEND Internal Medicine Cardiovascular Disease
DX: E78.2 Mixed hyperlipidemia (principal)
CPT/HCPCS: 36415; 80061; 84450; 84460

== ENCOUNTER → 2024-02-08 | Outpatient (CLI) | payer MEDICARE, OTHER ==
[2024-02-08 10:50] LABS: ALT 44 U/L (10-49); AST 36 U/L (14-35); Chol/HDL Ratio 3.71 Ratio; LDL Cholesterol,Calculated 145.8 mg/dL (0.0-131.0)
== END | disposition home or self-care (01) ==
LOC: LABWHC1 06:53
PROVIDERS: ATTEND Internal Medicine Cardiovascular Disease
DX: E78.2 Mixed hyperlipidemia (principal)
CPT/HCPCS: 36415; 80061; 84450; 84460

== ENCOUNTER → 2024-09-01 | Outpatient (CLI) | payer MEDICARE ==
[2024-09-01 21:21] LABS: ALT 60 U/L (10-49); AST 38 U/L (14-35); Chol/HDL Ratio 2.56 Ratio; LDL Cholesterol,Calculated 76.7 mg/dL (0.0-131.0)
== END | disposition home or self-care (01) ==
LOC: LABWHC1 09:35
PROVIDERS: ATTEND Internal Medicine Cardiovascular Disease
DX: E78.2 Mixed hyperlipidemia (principal)
CPT/HCPCS: 36415; 80061; 84450; 84460